=== PATIENT | female | born 1990 | race Hispanic/Latino ===

== ENCOUNTER 2016-09-05 17:33 | Emergency (ER) | payer MEDICAID ==
[2016-09-05 19:01] LABS: Urine Drugs of Abuse Note Disclamer
[2016-09-05 19:10] LABS: Basophils % (Auto) 0.6 % (0.0-1.8); Eosinophils % (Auto) 3.6 % (0.0-4.3); Hematocrit 42.4 % (30.3-42.9); Hemoglobin 14.1 gm/dl (10.1-14.3); Mean Corpuscular HGB Conc 33 % (30-34); Mean Corpuscular Hemoglobin 29 pg (28-32); Mean Corpuscular Volume 88 fl (79-97); Platelet Count 425 K/mm3 (140-440); Red Blood Count 4.82 M/mm3 (3.65-5.03); Red Cell Distribution Width 12.3 % (13.2-15.2)
[2016-09-05 19:19] LABS: Bacteria,Urine 1+ /HPF (Negative); Bilirubin,Urine NEG (Negative); Blood,Urine NEG (Negative); Ketones,Urine TR mg/dL (Negative); Leukocyte Esterase,Urine TR (Negative); Mucus,Urine 3+ /HPF; Nitrite,Urine NEG (Negative); Urobilinogen,Urine < 2.0 mg/dL (<2.0)
[2016-09-05 19:24] LABS: Anion Gap 19 mmol/L; BUN/Creatinine Ratio 11.42; Blood Urea Nitrogen 8 mg/dL (7-17); Calcium 10.3 mg/dL (8.4-10.2); Carbon Dioxide 26 mmol/L (22-30); Chloride 98.4 mmol/L (98-107); Glucose 87 mg/dL (65-100); Potassium 4.5 mmol/L (3.6-5.0); Sodium 139 mmol/L (137-145)
--- NOTE | 2016-09-06 06:39 | Emergency Department Report ---
HPI - General Chief Complaint: Psych Time Seen by Provider: 09/06/16 06:16 - HPI HPI: This is a 26-year-old female presents to the emergency department, voluntarily, to seek some help for depression and anxiety. The patient says she has previously diagnosed generalized anxiety and major depression. She is on 20 mg of fluoxetine daily but says that it does not appear as if it is helping. She is not working now, is not attending school, and does not have any significant other or children. She says that it is just generalized symptoms and no specific event or reason for how she feels. She denies any suicidal or homicidal ideations. She denies any auditory or visual hallucinations. Other than taking her regular medications she has not taken anything else specifically to try and treat her symptoms. Her primary care physician is a Dr. Hassan. She does not have any psychiatrist, psychologist or counselor. ED Past Medical Hx - Past Medical History Previous Medical History?: Yes Hx Psychiatric Treatment: Yes (major depression) - Surgical History Past Surgical History?: No - Social History Smoking Status: Never Smoker Substance Use Type: Alcohol, Prescribed - Medications Home Medications: Home Medications Medication Instructions Recorded Confirmed Last Taken Type ALPRAZolam [Xanax TAB] 0.5 mg PO BID PRN #8 tab 09/06/16 Unknown Rx ED Review of Systems ROS: Stated complaint: MH/EVAL Other details as noted in HPI Comment: All other systems reviewed and negative Constitutional: denies: chills, fever Eyes: denies: eye pain, eye discharge, vision change ENT: denies: ear pain, throat pain Respiratory: denies: cough, shortness of breath, wheezing Cardiovascular: denies: chest pain, palpitations Gastrointestinal: denies: abdominal pain, nausea, diarrhea Genitourinary: denies: urgency, dysuria, discharge Musculoskeletal: denies: back pain, joint swelling, arthralgia Skin: denies: rash, lesions Neurological: denies: headache, weakness, paresthesias Psychiatric: anxiety, depression. denies: auditory hallucinations, visual hallucinations, homicidal thoughts, suicidal thoughts Physical Exam - Physical Exam Vital Signs: Vital Signs 09/05/16 09/06/16 09/06/16 18:20 02:28 04:01 Temperature 98.5 F 97.8 F Pulse Rate 73 72 Respiratory 20 18 Rate Blood Pressure 131/81 157/98 122/69 O2 Sat by Pulse 100 96 94 Oximetry 09/06/16 04:10 Temperature Pulse Rate Respiratory 16 Rate Blood Pressure O2 Sat by Pulse 94 Oximetry Physical Exam: GENERAL: The patient is well-developed well-nourished. HEENT: Normocephalic. Atraumatic. Extraocular motions are intact. Patient has moist mucous membranes. Pupils equal reactive to light bilaterally. NECK: Supple. Trachea is midline. CHEST/LUNGS: Clear to auscultation. There is no respiratory distress noted. HEART/CARDIOVASCULAR: Regular. There is no tachycardia. There is no gallop rub or murmur. ABDOMEN: Abdomen is soft, nontender. Patient has normal bowel sounds. There is no abdominal distention. SKIN: Skin is warm and dry. NEURO: The patient is awake, alert, and oriented. The patient is cooperative. The patient has no focal neurologic deficits. The patient has normal speech. Cranial nerves II through XII grossly intact. MUSCULOSKELETAL: There is no tenderness or deformity. There is no limitation range of motion. There is no evidence of acute injury. ED Course Vital Signs 09/05/16 09/06/16 09/06/16 18:20 02:28 04:01 Temperature 98.5 F 97.8 F Pulse Rate 73 72 Respiratory 20 18 Rate Blood Pressure 131/81 157/98 122/69 O2 Sat by Pulse 100 96 94 Oximetry 09/06/16 04:10 Temperature Pulse Rate Respiratory 16 Rate Blood Pressure O2 Sat by Pulse 94 Oximetry ED Medical Decision Making - Lab Data Result diagrams: 09/05/16 18:56 09/05/16 18:56 - Medical Decision Making 26-year-old female presents to the emergency department with complaint of anxiety and depression. She does not meet criteria to be made a 1013 as she does not have any suicidal ideations, homicidal ideations, auditory or visual hallucinations and she does not appear to be in acute psychosis. Her labs are unremarkable and do not show any etiology of her symptoms. She is awake, lucid and reasonable. Vital signs stable throughout her ED course. The crisis therapist has been contacted to assist in providing referrals for outpatient psychiatric treatment. The patient was given a small amount of Xanax to help with her anxiety and she will remain on her Prozac until follow-up with a psychiatrist. She's been encouraged to return to the ER with any worsening of her symptoms or any acute distress. - Differential Diagnosis anxiety, depression, bipolar disorder, substance abuse Critical Care Time: No Critical care attestation.: If time is entered above; I have spent that time in minutes in the direct care of this critically ill patient, excluding procedure time. ED Disposition Clinical Impression: Anxiety Depression Qualifiers: Depression Type: unspecified Qualified Code(s): F32.9 - Major depressive disorder, single episode, unspecified Disposition: DC-01 TO HOME OR SELFCARE Is pt being admited?: No Condition: Stable Instructions: Anxiety (ED), Generalized Anxiety Disorder (ED), Depression (ED) Additional Instructions: Please follow-up with Dr. Hassan regarding her symptoms and other outpatient referrals for psychiatric treatment. You should have also gotten some referrals from our crisis therapist/behavioral counselor. I have given you a small amount of Xanax to help with your anxiety. This medication can be sedating and therefore cannot be mixed with alcohol, taken prior to driving, working, being responsible for children. Return to the emergency department with any worsening of your symptoms or any acute distress. Prescriptions: ALPRAZolam [Xanax TAB] 0.5 mg PO BID PRN #8 tab PRN Reason: Anxiety Referrals: [facility] HASSAN [Other] - 3-[address] [facility] [Outside] - 3-5 Days Time of Disposition: 07:40
[2016-09-06 11:46] VITALS: BP 171/82
== END 2016-09-06 12:06 | disposition home or self-care (01) ==
LOC: EEVIPCON 17:33 → ED 17:33
DX: F32.9 Major depressive disorder, single episode, unspecified (principal); F41.9 Anxiety disorder, unspecified; Z88.0 Allergy status to penicillin; Z88.1 Allergy status to other antibiotic agents
CPT/HCPCS: 36415; 80048; 80307; 81001; 85025; 99284; G0480; 80320

== ENCOUNTER 2017-04-16 10:27 | Emergency (ER) | payer MEDICAID ==
--- NOTE | 2017-04-16 16:40 | Emergency Department Report ---
HPI - General Chief Complaint: Upper Respiratory Infection Time Seen by Provider: 04/16/17 16:29 - HPI HPI: Patient here reports sore throat for 3 days and is getting worse. She says she has a deep heart cough with yellow sputum. States headache and body ache. She reports intermittent low-grade fever. She says she's been taking an over-the- counter cough and cold medication is not helping pain is side over the 10 generalized achy. Denies any shortness of breath or chest pain. Denies any nausea or vomiting or abdominal pain. Denies any back pain. Denies any medical problem but she has multiple mental health disorder. Patient states she has a primary care physician who is Dr. Hassan. ED Past Medical Hx - Past Medical History Previous Medical History?: Yes Hx Psychiatric Treatment: Yes (major depression, anxiety, bipolar) Additional medical history: PCOS - Surgical History Past Surgical History?: No - Family History Family history: no significant - Social History Smoking Status: Never Smoker Substance Use Type: None - Medications Home Medications: Home Medications Medication Instructions Recorded Confirmed Last Taken Type ALPRAZolam [Xanax TAB] 0.5 mg PO BID PRN #8 tab 09/06/16 Unknown Rx ALBUTEROL Inhaler [ProAir HFA 2 puff IH Q6H PRN #1 inhalation 04/16/17 Unknown Rx Inhaler] Cetirizine HCl [ZyrTEC] 10 mg PO QAM 14 Days #14 capsule 04/16/17 Unknown Rx Fluticasone [Flonase] 1 spray NS QDAY 14 Days #1 bottle 04/16/17 Unknown Rx methylPREDNISolone [Medrol Dose 4 mg PO QAM 6 Days #1 pack 04/16/17 Unknown Rx [place]] ED Review of Systems ROS: Stated complaint: SORE THROAT Other details as noted in HPI Comment: All other systems reviewed and negative Constitutional: chills ENT: throat pain, congestion. denies: ear pain Respiratory: cough. denies: orthopnea, shortness of breath, SOB with exertion, SOB at rest, stridor, wheezing Cardiovascular: denies: chest pain, palpitations, dyspnea on exertion, orthopnea , edema, syncope, paroxysmal nocturnal dyspnea Gastrointestinal: denies: abdominal pain, nausea, vomiting, diarrhea, constipation Genitourinary: denies: urgency, dysuria, frequency, hematuria Musculoskeletal: myalgia. denies: back pain, joint swelling, arthralgia Skin: denies: rash Neurological: denies: headache, weakness, numbness, paresthesias, abnormal gait , vertigo Physical Exam - Physical Exam Vital Signs: Vital Signs 04/16/17 11:14 Temperature 97.4 F L Pulse Rate 75 Respiratory 20 Rate Blood Pressure 135/73 O2 Sat by Pulse 98 Oximetry General: This is a 27-year-old female well-nourished well-developed in no acute distress. Physical Exam: Head: Normocephalic atraumatic Ears:BIateral TM congested without erythema and loss of bony landmarks. [place] EAC with normal exam. No mastoid bone tenderness. Mouth: Moist, no pharyngeal erythema or exudate . No tonsillar erythema or exudate. UVULA midline and oral airways patent. No peritonsillar abscess Neck: Nontender to palpate, supple, normal range of motion. No adenopathy. No c- spine tenderness. Nose: Bilateral nasal mucosa congested with clear drainage. Maxillary and frontal sinuses non-tender to palpate. Eyes: Sclerae and conjunctiva without injection. Bilateral pupils equal and reactive to light. Bilateral lids are normal. Normal accommodation.BEOMI Lungs: Scattered wheezing to upper lung zendejas .no use of accessory muscles. No rhonchi or rales. Normal work of breathing and no chest wall tenderness CV: S1, S2. Regular rate and rhythm negative murmur. Capillary refill is less than 3 seconds Skin: Clean dry and intact, no rashes or lesions Psych: Normal mood and behavior abdomen: Soft, nontender to palpate in all quadrants, no guarding or rebound tenderness. Positive bowel sounds in all quadrants and no CVA tenderness ED Course Vital Signs 04/16/17 11:14 Temperature 97.4 F L Pulse Rate 75 Respiratory 20 Rate Blood Pressure 135/73 O2 Sat by Pulse 98 Oximetry - Reevaluation(s) Reevaluation #1: 04/16/17 17:39 Patient given albuterol nebulizer treatment 2.5 mg in emergency room and Deltasone 60 mg by mouth. Upon reevaluation lungs sounds are clear. ED Medical Decision Making - Medical Decision Making ED course: Care reports that she is having cough and congestion with sore throat over a 3 day. She denies any fever. Patient found to have viral bronchitis with cough and congestion. She was given albuterol nebulizer 2.5 mg which relieved her wheezing and Deltasone 60 mg by mouth. I discussed the patient her diagnosis and treatment plan and I told her that she'll need to follow up with her primary care physician in 2-3 days. Patient is stable and discharged from emergency room her prescription for albuterol inhaler, Medrol Dosepak, Zyrtec and Flonase. Critical care attestation.: If time is entered above; I have spent that time in minutes in the direct care of this critically ill patient, excluding procedure time. ED Disposition Clinical Impression: Acute viral bronchitis, Upper respiratory infection with cough and congestion Pharyngitis Qualifiers: Pharyngitis/tonsillitis etiology: unspecified etiology Qualified Code(s): J02.9 - Acute pharyngitis, unspecified Disposition: - TO HOME OR SELFCARE Is pt being admited?: No Does the pt Need Aspirin: No Condition: Stable Instructions: Acute Bronchitis (ED), Acute Cough (ED), Pharyngitis (ED) Additional Instructions: Please follow-up with your primary care physician in 2-3 days Take medication as prescribed Increase your fluid intake. Prescriptions: ALBUTEROL Inhaler [ProAir HFA Inhaler] 2 puff IH Q6H PRN #1 inhalation PRN Reason: WHEEZING/Cough Cetirizine HCl [ZyrTEC] 10 mg PO QAM 14 Days #14 capsule Fluticasone [Flonase] 1 spray NS QDAY 14 Days #1 bottle methylPREDNISolone [Medrol Dose [place]] 4 mg PO QAM 6 Days #1 pack Referrals: PRIMARY CARE,MD [Primary Care Provider] - 2-3 Days Forms: Work/School Release Form(ED)
[2017-04-16 17:26] VITALS: BP 130/78
[2017-04-16] MEDS ORDERED: DELTASONE PO ONE (17:35)
[2017-04-16] MEDS ORDERED: PROVENTIL IH ONE (17:35)
== END 2017-04-16 18:24 | disposition home or self-care (01) ==
LOC: ED 10:27
DX: J20.9 Acute bronchitis, unspecified (principal); J06.9 Acute upper respiratory infection, unspecified
CPT/HCPCS: 94640; 99282; J7512

== ENCOUNTER 2019-05-11 11:35 | Emergency (ER) | payer MEDICAID ==
[2019-05-11 12:21] LABS: Bilirubin,Urine NEG (Negative); Blood,Urine NEG (Negative); Color,Urine Yellow (Yellow); Protein,Urine <15 mg/dL mg/dL (Negative); RBC,Urine < 1.0 /HPF (0.0-6.0); Urobilinogen,Urine < 2.0 mg/dL (<2.0); WBC,Urine < 1.0 /HPF (0.0-6.0)
[2019-05-11 12:27] LABS: Amphetamine Screen,Urine PRESUMPTIVE NEGATIVE; Benzodiazepines Screen,Urine PRESUMPTIVE NEGATIVE; Cannabinoid Screen,Urine PRESUMPTIVE NEGATIVE; Cocaine Screen,Urine PRESUMPTIVE NEGATIVE; Methadone Screen,Urine PRESUMPTIVE NEGATIVE; Opiate Screen,Urine PRESUMPTIVE NEGATIVE
--- NOTE | 2019-05-11 13:03 | Emergency Department Report ---
ED Psych HPI - General Chief Complaint: Psych Stated Complaint: SUICIDAL THOUGHTS Time Seen by Provider: 05/11/19 12:34 Source: patient Mode of arrival: Ambulatory - History of Present Illness Initial Comments: 29-year-old female patient with history of depression, schizophrenia, bipolar disorder, general anxiety disorder, and panic disorder presents with complaints of suicidal thoughts x1 month. She denies any plan or homicidal ideations. Patient states she is currently following with [facility] and is compliant with her psych medications. She admits to history of attempted suicide in the past. She denies any drug use, racing thoughts, aud itory/visual hallucinations. Associated Psychiatric Symptoms: depression, suicidal ideation - Related Data Home Medications Medication Instructions Recorded Confirmed Last Taken Fludrocortisone [Florinef Tab] 0.2 mg PO QDAY 05/11/19 05/11/19 05/11/19 Linaclotide [Linzess] 145 mcg PO QHS 05/11/19 05/11/19 05/10/19 Lurasidone HCl [Latuda] 10 mg PO QHS 05/11/19 05/11/19 05/10/19 Topiramate [Topiramate ER] 50 mg PO QDAY 05/11/19 05/11/19 05/11/19 Venlafaxine HCl [Venlafaxine HCl 150 mg PO QDAY 05/11/19 05/11/19 05/11/19 ER] hydrOXYzine HCL [Atarax] 25 mg PO BID 05/11/19 05/11/19 05/11/19 propranoloL [Inderal] 10 mg PO BID 05/11/19 05/11/19 05/11/19 Allergies Allergy/AdvReac Type Severity Reaction Status Date / Time amoxicillin Allergy Hives Verified 04/16/17 11:14 Penicillins Allergy Hives Verified 04/16/17 11:14 ED Review of Systems ROS: Stated complaint: SUICIDAL THOUGHTS Other details as noted in HPI Constitutional: denies: fever Eyes: denies: eye discharge Respiratory: denies: cough, shortness of breath Cardiovascular: denies: chest pain Gastrointestinal: denies: abdominal pain Genitourinary: denies: frequency, hematuria Neurological: denies: headache, paresthesias Psychiatric: depression, suicidal thoughts. denies: auditory hallucinations, visual hallucinations, homicidal thoughts ED Past Medical Hx - Past Medical History Previous Medical History?: Yes Hx Psychiatric Treatment: Yes (major depression, anxiety, bipolar, schiz ophrenia) Additional medical history: PCOS - Surgical History Past Surgical History?: No - Social History Smoking Status: Never Smoker Substance Use Type: None - Medications Home Medications: Home Medications Medication Instructions Recorded Confirmed Last Taken Type Fludrocortisone [Florinef Tab] 0.2 mg PO QDAY 05/11/19 05/11/19 05/11/19 History Linaclotide [Linzess] 145 mcg PO QHS 05/11/19 05/11/19 05/10/19 History Lurasidone HCl [Latuda] 10 mg PO QHS 05/11/19 05/11/19 05/10/19 History Topiramate [Topiramate ER] 50 mg PO QDAY 05/11/19 05/11/19 05/11/19 History Venlafaxine HCl [Venlafaxine HCl 150 mg PO QDAY 05/11/19 05/11/19 05/11/19 History ER] hydrOXYzine HCL [Atarax] 25 mg PO BID 05/11/19 05/11/19 05/11/19 History propranoloL [Inderal] 10 mg PO BID 05/11/19 05/11/19 05/11/19 History ED Physical Exam - General Limitations: No Limitations General appearance: alert, in no apparent distress - Head Head exam: Present: atraumatic, normocephalic - Eye Eye exam: Present: normal appearance. Absent: scleral icterus - ENT ENT exam: Present: mucous membranes moist - Neck Neck exam: Present: normal inspection - Respiratory Respiratory exam: Present: normal lung sounds bilaterally. Absent: respiratory distress - Cardiovascular Cardiovascular Exam: Present: regular rate, normal rhythm. Absent: systolic murmur, diastolic murmur, rubs, gallop - Extremities Exam Extremities exam: Present: normal inspection - Neurological Exam Neurological exam: Present: alert, oriented X3 - Psychiatric Psychiatric exam: Present: normal affect, depressed, suicidal ideation - Skin Skin exam: Present: warm, dry, intact, normal color. Absent: rash, cyanosis, diaphoretic, erythema ED Course Vital Signs 05/11/19 05/11/19 11:43 13:00 Temperature 98.2 F 97.7 F Pulse Rate 81 84 Respiratory 16 18 Rate Blood Pressure 121/87 Blood Pressure 111/68 [Right] O2 Sat by Pulse 100 100 Oximetry ED Medical Decision Making - Lab Data Result diagrams: 05/11/19 12:31 05/11/19 12:31 Lab Results 05/11/19 05/11/19 05/11/19 Range/Units 12:01 12:01 12:31 WBC (4.5-11.0) K/mm3 RBC (3.65-5.03) M/mm3 Hgb (10.1-14.3) gm/dl Hct (30.3-42.9) % MCV (79-97) fl MCH (28-32) pg MCHC (30-34) % RDW (13.2-15.2) % Plt Count (140-440) K/mm3 Lymph % (Auto) (13.4-35.0) % [place] % (Auto) (0.0-7.3) % Eos % (Auto) (0.0-4.3) % Baso % (Auto) (0.0-1.8) % Lymph # (1.2-5.4) K/mm3 [place] # (0.0-0.8) K/mm3 Eos # (0.0-0.4) K/mm3 Baso # (0.0-0.1) K/mm3 Seg Neutrophils % (40.0-70.0) % Seg Neutrophils # (1.8-7.7) K/mm3 Sodium (137-145) mmol/L Potassium (3.6-5.0) mmol/L Chloride (98-107) mmol/L Carbon Dioxide (22-30) mmol/L Anion Gap mmol/L BUN (7-17) mg/dL Creatinine (0.7-1.2) mg/dL Estimated GFR ml/min BUN/Creatinine Ratio % Glucose (65-100) mg/dL Calcium (8.4-10.2) mg/dL HCG, Qual (Negative) Urine Color Yellow (Yellow) Urine Turbidity Clear (Clear) Urine pH 7.0 (5.0-7.0) Ur Specific [place] 1.004 (1.003-1.030) Urine Protein <15 mg/dl (Negative) mg/dL Urine Glucose (UA) Neg (Negative) mg/dL Urine Ketones Neg (Negative) mg/dL Urine Blood Neg (Negative) Urine Nitrite Neg (Negative) Urine Bilirubin Neg (Negative) Urine Urobilinogen < 2.0 (<2.0) mg/dL Ur Leukocyte Esterase Neg (Negative) Urine WBC (Auto) < 1.0 (0.0-6.0) /HPF Urine RBC (Auto) < 1.0 (0.0-6.0) /HPF Salicylates < 0.3 L (2.8-20.0) mg/dL Urine Opiates Screen Presumptive negative Urine Methadone Screen Presumptive negative Acetaminophen (10.0-30.0) ug/mL Ur Barbiturates Screen Presumptive negative Ur Phencyclidine Scrn Presumptive negative Ur Amphetamines Screen Presumptive negative U Benzodiazepines Scrn Presumptive negative Urine Cocaine Screen Presumptive negative U Marijuana (THC) Screen Presumptive negative Drugs of Abuse Note Disclamer Plasma/Serum Alcohol (0-0.07) % 05/11/19 05/11/19 05/11/19 Range/Units 12:31 12:31 12:31 WBC (4.5-11.0) K/mm3 RBC (3.65-5.03) M/mm3 Hgb (10.1-14.3) gm/dl Hct (30.3-42.9) % MCV (79-97) fl MCH (28-32) pg MCHC (30-34) % RDW (13.2-15.2) % Plt Count (140-440) K/mm3 Lymph % (Auto) (13.4-35.0) % [place] % (Auto) (0.0-7.3) % Eos % (Auto) (0.0-4.3) % Baso % (Auto) (0.0-1.8) % Lymph # (1.2-5.4) K/mm3 [place] # (0.0-0.8) K/mm3 Eos # (0.0-0.4) K/mm3 Baso # (0.0-0.1) K/mm3 Seg Neutrophils % (40.0-70.0) % Seg Neutrophils # (1.8-7.7) K/mm3 Sodium 142 (137-145) mmol/L Potassium 3.9 (3.6-5.0) mmol/L Chloride 102.4 (98-107) mmol/L Carbon Dioxide 27 (22-30) mmol/L Anion Gap 17 mmol/L BUN 8 (7-17) mg/dL Creatinine 0.7 (0.7-1.2) mg/dL Estimated GFR > 60 ml/min BUN/Creatinine Ratio 11 % Glucose 95 (65-100) mg/dL Calcium 9.7 (8.4-10.2) mg/dL HCG, Qual (Negative) Urine Color (Yellow) Urine Turbidity (Clear) Urine pH (5.0-7.0) Ur Specific [place] (1.003-1.030) Urine Protein (Negative) mg/dL Urine Glucose (UA) (Negative) mg/dL Urine Ketones (Negative) mg/dL Urine Blood (Negative) Urine Nitrite (Negative) Urine Bilirubin (Negative) Urine Urobilinogen (<2.0) mg/dL Ur Leukocyte Esterase (Negative) Urine WBC (Auto) (0.0-6.0) /HPF Urine RBC (Auto) (0.0-6.0) /HPF Salicylates (2.8-20.0) mg/dL Urine Opiates Screen Urine Methadone Screen Acetaminophen < 5.0 L (10.0-30.0) ug/mL Ur Barbiturates Screen Ur Phencyclidine Scrn Ur Amphetamines Screen U Benzodiazepines Scrn Urine Cocaine Screen U Marijuana (THC) Screen Drugs of Abuse Note Plasma/Serum Alcohol < 0.01 (0-0.07) % 05/11/19 05/11/19 Range/Units 12:31 12:31 WBC 5.9 (4.5-11.0) K/mm3 RBC 4.17 (3.65-5.03) M/mm3 Hgb 13.5 (10.1-14.3) gm/dl Hct 39.3 (30.3-42.9) % MCV 94 (79-97) fl MCH 32 (28-32) pg MCHC 34 (30-34) % RDW 11.7 L (13.2-15.2) % Plt Count 309 (140-440) K/mm3 Lymph % (Auto) 22.5 (13.4-35.0) % [place] % (Auto) 3.5 (0.0-7.3) % Eos % (Auto) 3.4 (0.0-4.3) % Baso % (Auto) 0.5 (0.0-1.8) % Lymph # 1.3 (1.2-5.4) K/mm3 [place] # 0.2 (0.0-0.8) K/mm3 Eos # 0.2 (0.0-0.4) K/mm3 Baso # 0.0 (0.0-0.1) K/mm3 Seg Neutrophils % 70.1 H (40.0-70.0) % Seg Neutrophils # 4.1 (1.8-7.7) K/mm3 Sodium (137-145) mmol/L Potassium (3.6-5.0) mmol/L Chloride (98-107) mmol/L Carbon Dioxide (22-30) mmol/L Anion Gap mmol/L BUN (7-17) mg/dL Creatinine (0.7-1.2) mg/dL Estimated GFR ml/min BUN/Creatinine Ratio % Glucose (65-100) mg/dL Calcium (8.4-10.2) mg/dL HCG, Qual Negative (Negative) Urine Color (Yellow) Urine Turbidity (Clear) Urine pH (5.0-7.0) Ur Specific [place] (1.003-1.030) Urine Protein (Negative) mg/dL Urine Glucose (UA) (Negative) mg/dL Urine Ketones (Negative) mg/dL Urine Blood (Negative) Urine Nitrite (Negative) Urine Bilirubin (Negative) Urine Urobilinogen (<2.0) mg/dL Ur Leukocyte Esterase (Negative) Urine WBC (Auto) (0.0-6.0) /HPF Urine RBC (Auto) (0.0-6.0) /HPF Salicylates (2.8-20.0) mg/dL Urine Opiates Screen Urine Methadone Screen Acetaminophen (10.0-30.0) ug/mL Ur Barbiturates Screen Ur Phencyclidine Scrn Ur Amphetamines Screen U Benzodiazepines Scrn Urine Cocaine Screen U Marijuana (THC) Screen Drugs of Abuse Note Plasma/Serum Alcohol (0-0.07) % - Medical Decision Making 29-year-old female patient with history of depression, schizophrenia, bipolar disorder, general anxiety disorder, and panic disorder presents with complaints of suicidal thoughts x1 month. Patient states she is currently following with [facility] and is compliant with her psych medications. She admits to history of attempted suicide in the past. Patient placed on a 1013 and is currently pending mental health evaluation. CBC, BMP, UA, and urine drug screen are normal. Patient is negative for Tylenol or salicylates.. Her vitals are normal. Patient is medically cleared for disposition by mental health electrical tester battery. Critical care attestation.: If time is entered above; I have spent that time in minutes in the direct care of this critically ill patient, excluding procedure time. ED Disposition Clinical Impression: Suicidal ideation Disposition: DC/TX-65 PSY HOSP/PSY UNIT Is pt being admited?: No Condition: Stable Referrals: PRIMARY CARE [Primary Care Provider] - 3-5 Days
[2019-05-11 13:16] LABS: Basophils % (Auto) 0.5 % (0.0-1.8); Eosinophils # (Auto) 0.2 K/mm3 (0.0-0.4); Eosinophils % (Auto) 3.4 % (0.0-4.3); Hematocrit 39.3 % (30.3-42.9); Hemoglobin 13.5 gm/dl (10.1-14.3); Lymphocytes # (Auto) 1.3 K/mm3 (1.2-5.4); Lymphocytes % (Auto) 22.5 % (13.4-35.0); Mean Corpuscular HGB Conc 34 % (30-34); Mean Corpuscular Volume 94 fl (79-97); Monocytes # (Auto) 0.2 K/mm3 (0.0-0.8); Monocytes % (Auto) 3.5 % (0.0-7.3); Platelet Count 309 K/mm3 (140-440); Red Blood Count 4.17 M/mm3 (3.65-5.03); Red Cell Distribution Width 11.7 % (13.2-15.2)
[2019-05-11 13:37] LABS: BUN/Creatinine Ratio 11; Blood Urea Nitrogen 8 mg/dL (7-17); Calcium 9.7 mg/dL (8.4-10.2); Hemolysis Index 1
[2019-05-11] MEDS ORDERED: ACETAMINOPHEN 325 MG TAB PO ONE (16:10)
[2019-05-11 20:55] VITALS: BP 108/69
== END 2019-05-11 21:02 ==
LOC: ED 11:35
DX: R45.851 Suicidal ideations (principal); F20.89 Other schizophrenia; F32.89 Other specified depressive episodes; Z79.899 Other long term (current) drug therapy; Z88.0 Allergy status to penicillin; Z88.4 Allergy status to anesthetic agent; Z88.1 Allergy status to other antibiotic agents
CPT/HCPCS: 36415; 80048; 80307; 80320; 81001; 84703; 85025; G0480